=== PATIENT | female | born 1955 | race Caucasian/White ===

== ENCOUNTER 2016-10-14 11:30 | Inpatient (IN) | payer OTHER, MEDICAID ==
[2016-10-14] MEDS ORDERED: ZITHROMAX INJ 500 MG VIAL 500 MG in NS 250 ML IV 250 ML IV SCH (12:17)
[2016-10-14] MEDS ORDERED: ROCEPHIN VIAL 1 GM 1 GM in NS 50 ML IV + SPIKE MINIBAG* 50 ML IV SCH (13:00)
[2016-10-14 16:14] LABS: BASOPHILS # (AUTO) 0.1 X10^3/uL (0.0-0.1); EOSINOPHILS # (AUTO) 0.3 x10^3/uL (0.0-0.2); EOSINOPHILS % (AUTO) 4.7 % (0.9-2.9); HEMATOCRIT 42.2 % (36.0-47.0); HEMOGLOBIN 14.3 g/dL (12.0-16.0); LYMPHOCYTES # (AUTO) 2.4 X10^3/uL (1.3-2.9); LYMPHOCYTES % (AUTO) 32.2 % (21.0-51.0); MEAN CORPUSCULAR HEMOGLOBIN 30.2 pg (27.0-34.0); MEAN CORPUSCULAR VOLUME 88.7 fL (80.0-100.0); MEAN PLATELET VOLUME 7.7 fL (7.4-11.0); MONOCYTES % (AUTO) 13.7 % (0.0-13.0); NEUTROPHILS # (AUTO) 3.5 x10^3/uL (2.2-4.8); NEUTROPHILS % (AUTO) 47.4 % (42.0-75.0); PLATELET COUNT 240 X10^3/uL (150.0-450.0); RED BLOOD COUNT 4.75 X10^6/uL (3.5-5.4); RED CELL DISTRIBUTION WIDTH 12.9 % (11.6-16.5); WHITE BLOOD COUNT 7.4 X10^3/uL (3.6-10.0)
--- NOTE | 2016-10-14 16:24 | RAD ---
HISTORY: Chest pain, acute bronchitis. Study: Portable chest. Comparison: None. Findings: The trachea is midline. The cardiac silhouette is unremarkable. The lungs are clear without focal infiltrate or effusion. The bony thorax is unremarkable. IMPRESSION: 1. No acute cardiopulmonary disease. Reported By:
[2016-10-14 16:28] LABS: ALANINE AMINOTRANSFERASE 22 Units/L (12-78); ALBUMIN 3.4 g/dL (3.4-5.0); ALKALINE PHOSPHATASE 91 Units/L (46-116); ASPARTATE AMINO TRANSFERASE 19 Units/L (15-37); BLOOD UREA NITROGEN 21 mg/dL (7-18); CALCIUM 8.7 mg/dL (8.5-10.1); CARBON DIOXIDE 34.5 mmol/L (21-32); CHLORIDE 103 mmol/L (98-107); CREATININE 1.88 mg/dL (0.55-1.02); GLUCOSE 95 mg/dL (65-99); MAGNESIUM 2.7 mg/dL (1.7-2.9); SODIUM 141 mmol/L (136-145); TOTAL PROTEIN 7.6 g/dL (6.4-8.2); eGFR BLACK RACES 35 (>60); eGFR NON BLACK RACES 29 (>60)
[2016-10-14] MEDS ORDERED: NS 250 ML IV 250 ML IV ONE (16:37)
[2016-10-14 16:41] LABS: CKMB % 1.7 % (<4); CREATINE KINASE 111 Units/L (26-192); CREATINE KINASE MB 1.9 ng/mL (0-4.0); TROPONIN I < 0.02 ng/mL (0-1.5)
[2016-10-14 16:55] VITALS: BMI 36.3
[2016-10-14] MEDS ORDERED: NS 500 ML IV 500 ML IV SCH (17:00)
[2016-10-14] MEDS: ACCUNEB 1.25 MG NEBULE NEB SCH (17:40)
[2016-10-14 18:56] LABS: CKMB % 1.5 % (<4); CREATINE KINASE 114 Units/L (26-192); CREATINE KINASE MB 1.7 ng/mL (0-4.0); TROPONIN I < 0.02 ng/mL (0-1.5)
[2016-10-14] MEDS ORDERED: MORPHINE SULFATE INJ 2 MG IVP PRN (19:30)
[2016-10-14] MEDS ORDERED: LOVENOX INJ 30 MG SYR SC SCH (21:00)
[2016-10-15 00:53] LABS: CKMB % 1.9 % (<4); CREATINE KINASE 80 Units/L (26-192); CREATINE KINASE MB 1.5 ng/mL (0-4.0); TROPONIN I < 0.02 ng/mL (0-1.5)
[2016-10-15] MEDS: ACCUNEB 1.25 MG NEBULE NEB SCH ×4 (00:58→17:11)
[2016-10-15 06:43] LABS: CHOL/HDL RATIO 2.9 (0.0-5.0)
[2016-10-15] MEDS ORDERED: MORPHINE SULFATE INJ 2 MG IVP PRN (07:28)
[2016-10-15] MEDS ORDERED: PHENERGAN TAB 25 MG PO PRN (08:15)
[2016-10-15] MEDS: LOVENOX INJ 30 MG SYR SC SCH ×2 (08:23→20:23)
[2016-10-15] MEDS: ROCEPHIN VIAL 1 GM 1 GM in NS 50 ML IV + SPIKE MINIBAG* 50 ML IV SCH (08:24)
--- NOTE | 2016-10-15 08:26 | DR.H&P ---
H&P - History & Physical for Day of: H&P Date: 10/15/16 - Chief Complaint Chief Complaint: Palpitations and SOB - Allergies Allergies/Adverse Reactions: Allergies Allergy/AdvReac Type Severity Reaction Status Date / Time No Known Drug Allergy Allergy Verified 10/14/16 16:00 - History of Present Illness History of Present Illness: The patient is a 61-year-old white female who presented to the clinic secondary to complaints of continued shortness of breath with congestion and palpitations. Her [id number] states that she is using nebulizer treatments. Is continuing Augmentin that was prescribed last week. States she does delay she has more nasal congestion nail. Is having cough which is nonproductive. Has again use nebulizer treatments. Patient's tremors are more course. Denies pain with inspiration. Does state that it feels like her heart is running away. No Fever. We will admit for further evaluation. - Past Medical History Past Medical History: Anxiety, COPD, CVA, Depression, Diabetes, Dyslipidemia, GERD, Gout, Hypertension, Renal Disease Additional Medical History: Lumbar DDD, Renal Calculi, Tremors - Past Surgical History Additional Surgical History: Bronchoscopy, Tubal Ligation, Nasal surgery, EGD - Family History Family Medical History: Diabetes Mellitus, Heart Failure, Hypertension - Social History Does patient currently use any type of tobacco product: No Have you used tobacco products in the last 12 months: No Type of Tobacco Use: Cigars How many years tobacco product used: 40 Does any household member use tobacco: No Alcohol Use: None Drug Use: None - Medications Home Medications: Acetaminophen W/ Codeine [Tylenol w/Codeine #4 (300 mg/60 mg)] 1 tab PO BID PRN 10/14/16 [History Confirmed 10/14/16] Amoxicillin & Pot Clavulanate [Amoxicillin/Clavulanate P 500-125 mg] 1 tab PO Q8H 10/14/16 [History Confirmed 10/14/16] Aripiprazole [Abilify] 1 tab PO DAILY 10/14/16 [History Confirmed 10/14/16] Aspirin [ASPIRIN 81 MG CHEWTAB *] 1 tab PO DAILY 10/14/16 [History Confirmed 04/20] Bupropion HCl [Bupropion HCl ER] 1 tab PO BID 10/14/16 [History Confirmed ] Divalproex Sodium [Depakote DR] 2 tabs PO HS 10/14/16 [History Confirmed ] Donepezil Hydrochloride [ARICEPT TAB 10 MG *] 1 tab PO HS 10/14/16 [History Confirmed 10/14/16] Estradiol [Estrace tab 0.5 mg] 1 tab PO DAILY 10/14/16 [History Confirmed ] Furosemide [Furosemide] 60 mg PO Q48H 10/14/16 [History Confirmed 10/14/16] Lorazepam [ATIVAN 0.5 MG TAB *] 1 tab PO Q12H 10/14/16 [History Confirmed ] Metformin HCl [Glucophage] 1 tab PO BID 10/14/16 [History Confirmed 10/14/16] Montelukast Sodium [SINGULAIR TAB 10 MG *] 1 tab PO HS 10/14/16 [History Confirmed 10/14/16] Nifedipine [Nifedipine ER] 1 tab PO DAILY 10/14/16 [History Confirmed 10/14/16] Potassium Chloride [K-Tab] 1 tab PO DAILY 10/14/16 [History Confirmed 10/14/16] Pramipexole Dihydrochloride [Pramipexole Dihydrochlori] 1 tab PO DAILY 10/14/16 [History Confirmed 10/14/16] Promethazine HCl 1 tab PO DAILY PRN 10/14/16 [History Confirmed 10/14/16] Ranitidine HCl [Zantac] 1 tab PO BID 10/14/16 [History Confirmed 10/14/16] Simvastatin [ZOCOR 20 MG *] 1 tab PO HS 10/14/16 [History Confirmed 10/14/16] Tamsulosin HCl 1 tab PO DAILY 10/14/16 [History Confirmed 10/14/16] Torsemide 2 tab PO DAILY 10/14/16 [History Confirmed 10/14/16] - Review of Systems Constitutional: Weakness Eyes: No Symptoms Reported ENT: No Symptoms Reported Respiratory: Shortness of Breath Cardiovascular: Chest Pain, Palpitations Gastrointestinal: No Symptoms Reported Genitourinary: No Symptoms Reported Musculoskeletal: No Symptoms Reported Skin: No Symptoms Reported Neurological: Weakness - Physical Exam Vital Signs: Temperature 97.0 F Pulse Rate [Apical] 59 Pulse Rate 57 Respiratory Rate 18 Blood Pressure [Left Arm] 100/51 O2 Sat by Pulse Oximetry 99 Oriented: Normal Eyes: Normal Ear: Normal Nose: Normal Throat: Normal Respiratory: Clear Throughout Cardiovascular: Normal : Normal Auscultation: Bowel Sounds: Normal Palpation: Normal Tenderness: Normal Skin: Normal Musculoskeletal: Normal Psychiatric: Normal Mood Description: Calm Affect: Quiet Speech Pattern: Aphasic - Assessment/Plan (1) Chest pain Qualifiers: Chest pain type: C Ischemic chest pain type: I Status: Acute Plan: CXR, Cardiac Enzymes, EKGs, Nebs (2) Palpitation Status: Acute Plan: Cardiac enzymes, EKGS (3) Acute bronchitis Qualifiers: Bronchitis organism: B Status: Acute Plan: Nebs, CXR, Labs, Antibiotics
[2016-10-15] MEDS ORDERED: GLUCOPHAGE ONE ×2 (08:51→20:08)
[2016-10-15] MEDS: FLOMAX PO SCH (08:59)
[2016-10-15] MEDS: PROCARDIA XL PO SCH (08:59)
[2016-10-15] MEDS ORDERED: PATIENT'S HOME MEDICATION (Ranitidine Hcl [Zantac] 1 TAB) PO SCH (09:00)
[2016-10-15] MEDS ORDERED: ESTRADIOL PO SCH (09:00)
[2016-10-15] MEDS: GLUCOPHAGE PO SCH ×2 (09:00→20:24)
[2016-10-15] MEDS: WELLBUTRIN SR 150 MG (BID) PO SCH ×2 (09:00→20:25)
[2016-10-15] MEDS: K-DUR TAB 20 MEQ PO SCH (09:00)
[2016-10-15] MEDS ORDERED: LASIX PO SCH (09:00)
[2016-10-15] MEDS ORDERED: PATIENT'S HOME MEDICATION (Potassium Chloride [K-Tab] 1 TAB) PO SCH (09:00)
[2016-10-15] MEDS ORDERED: NIFEDIPINE PO SCH (09:00)
[2016-10-15] MEDS: ASPIRIN 81 MG CHEWTAB PO SCH (09:00)
[2016-10-15] MEDS: ATIVAN TAB 0.5 MG PO SCH ×2 (09:01→20:24)
[2016-10-15] MEDS: MIRAPEX TAB 0.25 MG PO SCH (09:01)
[2016-10-15] MEDS: ABILIFY PO SCH (09:01)
[2016-10-15] MEDS: ZANTAC PO SCH ×2 (09:01→20:24)
[2016-10-15] MEDS: ESTRACE PO SCH (09:02)
[2016-10-15] MEDS: ZITHROMAX INJ 500 MG VIAL 500 MG in NS 250 ML IV 250 ML IV SCH (09:03)
--- NOTE | 2016-10-15 17:11 | PCM.PROG ---
Progress Note - Progress Note for Day of Date: 10/15/16 - Past Medical Family Social History Past Med/Fam/Surg Hx: No changes since H&P Allergies: Allergies No Known Drug Allergy Allergy (Verified 10/14/16 16:00) - Review of Systems ROS: No change since H&P - Vital Signs and I&O's Vital Signs: Temperature 98.1 F Pulse Rate [Apical] 64 Pulse Rate 60 Respiratory Rate 14 Blood Pressure [Left Arm] 82/50 O2 Sat by Pulse Oximetry 98 Intake and Output: Intake & Output 10/13/16 10/14/16 10/15/16 10/16/16 11:59 11:59 11:59 11:59 Intake Total 1385 1209 Output Total 200 1800 Balance 1185 -591 - Physical Exam Oriented: Normal Eyes: Normal Ear: Normal Nose: Normal Throat: Normal Respiratory: Wheezes, Rhonchi Cardiovascular: Normal : Normal Auscultation: Bowel Sounds: Normal Tenderness: Normal Skin: Normal Musculoskeletal: Normal Psychiatric: Normal Mood Description: Calm Affect: Quiet Speech Pattern: Aphasic - Laboratory and Diagnostics Result Diagrams: 10/14/16 16:05 10/14/16 16:05 Labs: Laboratory WBC 7.4 X10^3/uL (3.6-10.0) 10/14/16 16:05 RBC 4.75 X10^6/uL (3.5-5.4) 10/14/16 16:05 Hgb 14.3 g/dL (12.0-16.0) 10/14/16 16:05 Hct 42.2 % (36.0-47.0) 10/14/16 16:05 MCV 88.7 fL (80.0-100.0) 10/14/16 16:05 MCH 30.2 pg (27.0-34.0) 10/14/16 16:05 MCHC 34.0 g/dL (33.0-35.0) 10/14/16 16:05 RDW 12.9 % (11.6-16.5) 10/14/16 16:05 Plt Count 240 X10^3/uL (150.0-450.0) 10/14/16 16:05 MPV 7.7 fL (7.4-11.0) 10/14/16 16:05 Neut % 47.4 % (42.0-75.0) 10/14/16 16:05 Lymph % 32.2 % (21.0-51.0) 10/14/16 16:05 [place] % 13.7 % (0.0-13.0) H 10/14/16 16:05 Eos % 4.7 % (0.9-2.9) H 10/14/16 16:05 Baso % 2.0 % (0.2-1.0) H 10/14/16 16:05 Neut # 3.5 x10^3/uL (2.2-4.8) 10/14/16 16:05 Lymph # 2.4 X10^3/uL (1.3-2.9) 10/14/16 16:05 [place] # 1.0 x10^3/uL (0.3-0.8) H 10/14/16 16:05 Eos # 0.3 x10^3/uL (0.0-0.2) H 10/14/16 16:05 Baso # 0.1 X10^3/uL (0.0-0.1) 10/14/16 16:05 Absolute Nucleated RBC 0.0 /100WBC 10/14/16 16:05 Sodium 141 mmol/L (136-145) 10/14/16 16:05 Corrected Sodium TNP 10/14/16 16:05 Potassium 3.8 mmol/L (3.5-5.1) 10/14/16 16:05 Chloride 103 mmol/L (98-107) 10/14/16 16:05 Carbon Dioxide 34.5 mmol/L (21-32) H 10/14/16 16:05 BUN 21 mg/dL (7-18) H 10/14/16 16:05 Creatinine 1.88 mg/dL (0.55-1.02) H 10/14/16 16:05 Est GFR (MDRD) Af Amer 35 (>60) L 10/14/16 16:05 Est GFR (MDRD) Non-Af 29 (>60) L 10/14/16 16:05 Glucose 95 mg/dL (65-99) 10/14/16 16:05 Calcium 8.7 mg/dL (8.5-10.1) 10/14/16 16:05 Corrected Calcium TNP 10/14/16 16:05 Magnesium 2.7 mg/dL (1.7-2.9) 10/14/16 16:05 Total Bilirubin 0.20 mg/dL (0.2-1.0) 10/14/16 16:05 AST 19 Units/L (15-37) 10/14/16 16:05 ALT 22 Units/L (12-78) 10/14/16 16:05 Alkaline Phosphatase 91 Units/L (46-116) 10/14/16 16:05 Creatine Kinase 80 Units/L (26-192) 10/15/16 00:20 CK-MB (CK-2) 1.5 ng/mL (0-4.0) 10/15/16 00:20 CK/CKMB % Calc 1.9 % (<4) 10/15/16 00:20 Troponin I < 0.02 ng/mL (0-1.5) 10/15/16 00:20 Total Protein 7.6 g/dL (6.4-8.2) 10/14/16 16:05 Albumin 3.4 g/dL (3.4-5.0) 10/14/16 16:05 Globulin 4.2 g/dL (2.5-4.5) 10/14/16 16:05 Albumin/Globulin Ratio 0.8 Ratio (1.1-2.1) L 10/14/16 16:05 Triglycerides 112 mg/dL (0-150) 10/15/16 04:15 Cholesterol 141 mg/dL (0-200) 10/15/16 04:15 LDL Cholesterol, Calc 70 mg/dL (0-100) 10/15/16 04:15 HDL Cholesterol 49 mg/dL (40-60) 10/15/16 04:15 Cholesterol/HDL Ratio 2.9 (0.0-5.0) 10/15/16 04:15 - Plan (1) Acute bronchitis Status: Acute Qualifiers: Bronchitis organism: B Plan: Nebs, CXR, Labs, Antibiotics (2) Chest pain Status: Acute Qualifiers: Chest pain type: C Ischemic chest pain type: I Plan: CE AND EKG STABLE, CONTINUE TELEMETRY (3) CHF (congestive heart failure) Status: Chronic Qualifiers: Congestive heart failure type: C Congestive heart failure chronicity: C (4) COPD (chronic obstructive pulmonary disease) Status: Chronic Qualifiers: COPD type: C Chronic bronchitis type: C Emphysema type: E (5) Dementia Status: Chronic Qualifiers: Dementia type: D Alzheimer's disease onset: A Dementia behavioral disturbance: D (6) HTN (hypertension) Status: Chronic Qualifiers: Hypertension type: H
[2016-10-15] MEDS: NS 500 ML IV 500 ML IV SCH (18:37)
[2016-10-15] MEDS ORDERED: COLACE CAP 100 MG PO PRN (19:45)
[2016-10-15] MEDS ORDERED: DEPAKOTE D.R. TAB PO ONE (20:08)
[2016-10-15] MEDS: MILK OF MAGNESIA PO PRN (20:22)
[2016-10-15] MEDS: TYLENOL #3 TAB (W/CODEINE) PO PRN (20:23)
[2016-10-15] MEDS: ZOCOR TAB 20 MG PO SCH (20:24)
[2016-10-15] MEDS: ARICEPT TAB 10 MG PO SCH (20:24)
[2016-10-15] MEDS: SINGULAIR TAB 10 MG PO SCH (20:24)
[2016-10-15] MEDS: DEPAKOTE D.R. TAB PO SCH (20:26)
[2016-10-16] MEDS: ACCUNEB 1.25 MG NEBULE NEB SCH ×4 (00:51→16:59)
--- NOTE | 2016-10-16 06:13 | RAD ---
HISTORY: Bronchitis Study: Chest one view Comparison: October 14, 2016 Findings: The trachea is midline. The cardiac silhouette is unremarkable. The lungs are clear without focal infiltrate or effusion. The bony thorax is unremarkable. IMPRESSION: 1. No acute cardiopulmonary disease. Reported By:
[2016-10-16 06:55] LABS: BASOPHILS % (AUTO) 0.8 % (0.2-1.0); EOSINOPHILS # (AUTO) 0.3 x10^3/uL (0.0-0.2); HEMATOCRIT 35.6 % (36.0-47.0); HEMOGLOBIN 11.9 g/dL (12.0-16.0); LYMPHOCYTES # (AUTO) 2.5 X10^3/uL (1.3-2.9); LYMPHOCYTES % (AUTO) 48.3 % (21.0-51.0); MEAN CORPUSCULAR HEMOGLOBIN 29.8 pg (27.0-34.0); MEAN CORPUSCULAR HGB CONC 33.5 g/dL (33.0-35.0); MEAN CORPUSCULAR VOLUME 88.8 fL (80.0-100.0); MEAN PLATELET VOLUME 8.1 fL (7.4-11.0); MONOCYTES # (AUTO) 0.6 x10^3/uL (0.3-0.8); MONOCYTES % (AUTO) 12.5 % (0.0-13.0); NEUTROPHILS # (AUTO) 1.6 x10^3/uL (2.2-4.8); NEUTROPHILS % (AUTO) 32.4 % (42.0-75.0); PLATELET COUNT 187 X10^3/uL (150.0-450.0); RED BLOOD COUNT 4.01 X10^6/uL (3.5-5.4); RED CELL DISTRIBUTION WIDTH 13.2 % (11.6-16.5); WHITE BLOOD COUNT 5.1 X10^3/uL (3.6-10.0)
[2016-10-16 07:17] LABS: ALANINE AMINOTRANSFERASE 19 Units/L (12-78); ALBUMIN 2.5 g/dL (3.4-5.0); ALKALINE PHOSPHATASE 78 Units/L (46-116); ASPARTATE AMINO TRANSFERASE 18 Units/L (15-37); BLOOD UREA NITROGEN 17 mg/dL (7-18); CALCIUM 8.6 mg/dL (8.5-10.1); CHLORIDE 108 mmol/L (98-107); COR CA(FOR HYPOALB) 9.8 mg/dL (8.5-10.1); CREATININE 1.39 mg/dL (0.55-1.02); GLUCOSE 97 mg/dL (65-99); SODIUM 143 mmol/L (136-145); eGFR BLACK RACES 49 (>60); eGFR NON BLACK RACES 41 (>60)
[2016-10-16] MEDS ORDERED: GLUCOPHAGE ONE ×2 (09:50→20:07)
[2016-10-16] MEDS: LOVENOX INJ 30 MG SYR SC SCH ×2 (10:09→21:48)
[2016-10-16] MEDS: ZITHROMAX INJ 500 MG VIAL 500 MG in NS 250 ML IV 250 ML IV SCH (10:10)
[2016-10-16] MEDS: MILK OF MAGNESIA PO PRN (10:10)
[2016-10-16] MEDS: ROCEPHIN VIAL 1 GM 1 GM in NS 50 ML IV + SPIKE MINIBAG* 50 ML IV SCH (10:11)
[2016-10-16] MEDS: PROCARDIA XL PO SCH (10:11)
[2016-10-16] MEDS: ZANTAC PO SCH ×2 (10:11→21:49)
[2016-10-16] MEDS: MIRAPEX TAB 0.25 MG PO SCH (10:12)
[2016-10-16] MEDS: ATIVAN TAB 0.5 MG PO SCH ×2 (10:12→21:49)
[2016-10-16] MEDS: ESTRACE PO SCH (10:12)
[2016-10-16] MEDS: K-DUR TAB 20 MEQ PO SCH (10:13)
[2016-10-16] MEDS: GLUCOPHAGE PO SCH ×2 (10:13→21:49)
[2016-10-16] MEDS: WELLBUTRIN SR 150 MG (BID) PO SCH ×2 (10:13→21:49)
[2016-10-16] MEDS: FLOMAX PO SCH (10:13)
[2016-10-16] MEDS: ASPIRIN 81 MG CHEWTAB PO SCH (10:14)
[2016-10-16] MEDS: ABILIFY PO SCH (10:21)
[2016-10-16] MEDS: ROBITUSSIN DM PO SCH ×4 (12:51→21:48)
--- NOTE | 2016-10-16 13:10 | PCM.PROG ---
Progress Note - Progress Note for Day of Date: 10/16/16 - Subjective Subjective: PT STATES SOB IMPROVED, CONTINUES WITH PRODUCTIVE COUGH - Past Medical Family Social History Past Med/Fam/Surg Hx: No changes since H&P Allergies: Allergies No Known Drug Allergy Allergy (Verified 10/14/16 16:00) - Review of Systems ROS: No change since H&P - Vital Signs and I&O's Vital Signs: Temperature 97.9 F Pulse Rate [Apical] 71 Pulse Rate 56 Respiratory Rate 14 Blood Pressure [Right Arm] 112/68 Blood Pressure [Left Arm] 95/55 O2 Sat by Pulse Oximetry 99 Intake and Output: Intake & Output 10/14/16 10/15/16 10/16/16 10/17/16 11:59 11:59 11:59 11:59 Intake Total 1385 1779 Output Total 200 2500 Balance 1185 -721 - Physical Exam Oriented: Normal Eyes: Normal Ear: Normal Nose: Normal Throat: Normal Respiratory: Wheezes, Rhonchi Cardiovascular: Normal : Normal Auscultation: Bowel Sounds: Normal Tenderness: Normal Skin: Normal Musculoskeletal: Normal Psychiatric: Normal Mood Description: Calm Affect: Quiet Speech Pattern: Clear, Appropriate - Laboratory and Diagnostics Result Diagrams: 10/16/16 05:10 10/16/16 05:10 Labs: Laboratory WBC 5.1 X10^3/uL (3.6-10.0) 10/16/16 05:10 RBC 4.01 X10^6/uL (3.5-5.4) 10/16/16 05:10 Hgb 11.9 g/dL (12.0-16.0) L 10/16/16 05:10 Hct 35.6 % (36.0-47.0) L 10/16/16 05:10 MCV 88.8 fL (80.0-100.0) 10/16/16 05:10 MCH 29.8 pg (27.0-34.0) 10/16/16 05:10 MCHC 33.5 g/dL (33.0-35.0) 10/16/16 05:10 RDW 13.2 % (11.6-16.5) 10/16/16 05:10 Plt Count 187 X10^3/uL (150.0-450.0) 10/16/16 05:10 MPV 8.1 fL (7.4-11.0) 10/16/16 05:10 Neut % 32.4 % (42.0-75.0) L 10/16/16 05:10 Lymph % 48.3 % (21.0-51.0) 10/16/16 05:10 [place] % 12.5 % (0.0-13.0) 10/16/16 05:10 Eos % 6.0 % (0.9-2.9) H 10/16/16 05:10 Baso % 0.8 % (0.2-1.0) 10/16/16 05:10 Neut # 1.6 x10^3/uL (2.2-4.8) L 10/16/16 05:10 Lymph # 2.5 X10^3/uL (1.3-2.9) 10/16/16 05:10 [place] # 0.6 x10^3/uL (0.3-0.8) 10/16/16 05:10 Eos # 0.3 x10^3/uL (0.0-0.2) H 10/16/16 05:10 Baso # 0.0 X10^3/uL (0.0-0.1) 10/16/16 05:10 Absolute Nucleated RBC 0.3 /100WBC 10/16/16 05:10 Sodium 143 mmol/L (136-145) 10/16/16 05:10 Corrected Sodium TNP 10/16/16 05:10 Potassium 4.3 mmol/L (3.5-5.1) 10/16/16 05:10 Chloride 108 mmol/L (98-107) H 10/16/16 05:10 Carbon Dioxide 31.0 mmol/L (21-32) 10/16/16 05:10 BUN 17 mg/dL (7-18) 10/16/16 05:10 Creatinine 1.39 mg/dL (0.55-1.02) H 10/16/16 05:10 Est GFR (MDRD) Af Amer 49 (>60) L 10/16/16 05:10 Est GFR (MDRD) Non-Af 41 (>60) L 10/16/16 05:10 Glucose 97 mg/dL (65-99) 10/16/16 05:10 Calcium 8.6 mg/dL (8.5-10.1) 10/16/16 05:10 Corrected Calcium 9.8 mg/dL (8.5-10.1) 10/16/16 05:10 Magnesium 2.7 mg/dL (1.7-2.9) 10/14/16 16:05 Total Bilirubin 0.10 mg/dL (0.2-1.0) L 10/16/16 05:10 AST 18 Units/L (15-37) 10/16/16 05:10 ALT 19 Units/L (12-78) 10/16/16 05:10 Alkaline Phosphatase 78 Units/L (46-116) 10/16/16 05:10 Creatine Kinase 80 Units/L (26-192) 10/15/16 00:20 CK-MB (CK-2) 1.5 ng/mL (0-4.0) 10/15/16 00:20 CK/CKMB % Calc 1.9 % (<4) 10/15/16 00:20 Troponin I < 0.02 ng/mL (0-1.5) 10/15/16 00:20 Total Protein 6.0 g/dL (6.4-8.2) L 10/16/16 05:10 Albumin 2.5 g/dL (3.4-5.0) L 10/16/16 05:10 Globulin 3.5 g/dL (2.5-4.5) 10/16/16 05:10 Albumin/Globulin Ratio 0.7 Ratio (1.1-2.1) L 10/16/16 05:10 Triglycerides 112 mg/dL (0-150) 10/15/16 04:15 Cholesterol 141 mg/dL (0-200) 10/15/16 04:15 LDL Cholesterol, Calc 70 mg/dL (0-100) 10/15/16 04:15 HDL Cholesterol 49 mg/dL (40-60) 10/15/16 04:15 Cholesterol/HDL Ratio 2.9 (0.0-5.0) 10/15/16 04:15 - Plan (1) Acute bronchitis Status: Acute Qualifiers: Bronchitis organism: B Plan: Nebs, CXR, Labs, Antibiotics. ROBITUSSIN DM QID (2) Chest pain Status: Acute Qualifiers: Chest pain type: C Ischemic chest pain type: I Plan: CE AND EKG STABLE, CONTINUE TELEMETRY (3) CHF (congestive heart failure) Status: Chronic Qualifiers: Congestive heart failure type: C Congestive heart failure chronicity: C (4) COPD (chronic obstructive pulmonary disease) Status: Chronic Qualifiers: COPD type: C Chronic bronchitis type: C Emphysema type: E (5) Dementia Status: Chronic Qualifiers: Dementia type: D Alzheimer's disease onset: A Dementia behavioral disturbance: D (6) HTN (hypertension) Status: Chronic Qualifiers: Hypertension type: H
[2016-10-16] MEDS: NS 500 ML IV 500 ML IV SCH (18:00)
[2016-10-16] MEDS: LASIX IVP SCH ×2 (18:16→21:48)
[2016-10-16] MEDS: TYLENOL #3 TAB (W/CODEINE) PO PRN (19:26)
[2016-10-16] MEDS: SNACK - Diabetic Appropriate PO SCH (19:27)
[2016-10-16] MEDS ORDERED: DEPAKOTE D.R. TAB PO ONE (20:11)
[2016-10-16] MEDS: PULMICORT NEB TX 0.5 MG NEB SCH (21:19)
[2016-10-16] MEDS: ARICEPT TAB 10 MG PO SCH (21:49)
[2016-10-16] MEDS: ZOCOR TAB 20 MG PO SCH (21:49)
[2016-10-16] MEDS: SINGULAIR TAB 10 MG PO SCH (21:49)
[2016-10-16] MEDS: DEPAKOTE D.R. TAB PO SCH (21:50)
[2016-10-16 22:42] LABS: BILIRUBIN,URINE NEGATIVE (NEGATIVE); BLOOD/HEMOGLOBIN,URINE NEGATIVE (NEGATIVE); GLUCOSE, URINE NEGATIVE (NEGATIVE); KETONES,URINE NEGATIVE (NEGATIVE); LEUKOCYTE ESTERASE ,URINE NEGATIVE (NEGATIVE); NITRITES,URINE NEGATIVE (NEGATIVE); PROTEIN,URINE NEGATIVE (NEGATIVE); UROBILINOGEN,URINE NORMAL (NORMAL)
[2016-10-16 22:58] LABS: APPEARANCE,URINE CLEAR (CLEAR); BACTERIA,URINE NEGATIVE /HPF (NEGATIVE); COLOR,URINE PALE YELLOW (YELLOW); RBC,URINE 0-3 /HPF (NEGATIVE); SQUAMOUS EPITHELIAL CELL,UR RARE /HPF (NEGATIVE)
[2016-10-17] MEDS: ACCUNEB 1.25 MG NEBULE NEB SCH ×3 (00:59→11:01)
[2016-10-17 06:15] LABS: BASOPHILS % (AUTO) 0.5 % (0.2-1.0); EOSINOPHILS # (AUTO) 0.3 x10^3/uL (0.0-0.2); EOSINOPHILS % (AUTO) 5.9 % (0.9-2.9); HEMATOCRIT 35.1 % (36.0-47.0); HEMOGLOBIN 11.9 g/dL (12.0-16.0); LYMPHOCYTES # (AUTO) 2.6 X10^3/uL (1.3-2.9); LYMPHOCYTES % (AUTO) 44.1 % (21.0-51.0); MEAN CORPUSCULAR HEMOGLOBIN 29.9 pg (27.0-34.0); MEAN CORPUSCULAR HGB CONC 33.9 g/dL (33.0-35.0); MEAN CORPUSCULAR VOLUME 88.4 fL (80.0-100.0); MEAN PLATELET VOLUME 8.3 fL (7.4-11.0); MONOCYTES # (AUTO) 0.8 x10^3/uL (0.3-0.8); MONOCYTES % (AUTO) 12.9 % (0.0-13.0); NEUTROPHILS # (AUTO) 2.1 x10^3/uL (2.2-4.8); NEUTROPHILS % (AUTO) 36.6 % (42.0-75.0); PLATELET COUNT 202 X10^3/uL (150.0-450.0); RED BLOOD COUNT 3.97 X10^6/uL (3.5-5.4); RED CELL DISTRIBUTION WIDTH 12.8 % (11.6-16.5); WHITE BLOOD COUNT 5.8 X10^3/uL (3.6-10.0)
--- NOTE | 2016-10-17 06:31 | RAD ---
HISTORY: Shortness of breath Study: Chest one view Comparison: October 16, 2016 Findings: The trachea is midline. The cardiac silhouette is unremarkable. The lungs are clear without focal infiltrate or effusion. The bony thorax is unremarkable. IMPRESSION: 1. No acute cardiopulmonary disease. Reported By:
[2016-10-17 06:36] LABS: ALANINE AMINOTRANSFERASE 18 Units/L (12-78); ALBUMIN 2.6 g/dL (3.4-5.0); ALKALINE PHOSPHATASE 74 Units/L (46-116); ASPARTATE AMINO TRANSFERASE 15 Units/L (15-37); BLOOD UREA NITROGEN 17 mg/dL (7-18); CALCIUM 8.7 mg/dL (8.5-10.1); CARBON DIOXIDE 29.9 mmol/L (21-32); CHLORIDE 106 mmol/L (98-107); COR CA(FOR HYPOALB) 9.8 mg/dL (8.5-10.1); CREATININE 1.25 mg/dL (0.55-1.02); GLUCOSE 67 mg/dL (65-99); SODIUM 144 mmol/L (136-145); eGFR BLACK RACES 56 (>60); eGFR NON BLACK RACES 46 (>60)
[2016-10-17] MEDS ORDERED: GLUCOPHAGE ONE ×2 (08:23→20:39)
[2016-10-17] MEDS: PULMICORT NEB TX 0.5 MG NEB SCH ×2 (08:55→20:35)
[2016-10-17] MEDS: ZITHROMAX INJ 500 MG VIAL 500 MG in NS 250 ML IV 250 ML IV SCH (09:27)
[2016-10-17] MEDS: ROCEPHIN VIAL 1 GM 1 GM in NS 50 ML IV + SPIKE MINIBAG* 50 ML IV SCH (09:27)
[2016-10-17] MEDS: NS 500 ML IV 500 ML IV SCH ×2 (09:27→17:14)
[2016-10-17] MEDS: LOVENOX INJ 30 MG SYR SC SCH ×2 (09:29→21:02)
[2016-10-17] MEDS: WELLBUTRIN SR 150 MG (BID) PO SCH ×2 (09:30→21:04)
[2016-10-17] MEDS: PROCARDIA XL PO SCH (09:30)
[2016-10-17] MEDS: MIRAPEX TAB 0.25 MG PO SCH (09:30)
[2016-10-17] MEDS: ASPIRIN 81 MG CHEWTAB PO SCH (09:30)
[2016-10-17] MEDS: ROBITUSSIN DM PO SCH ×4 (09:30→21:03)
[2016-10-17] MEDS: GLUCOPHAGE PO SCH ×2 (09:30→21:04)
[2016-10-17] MEDS: ABILIFY PO SCH (09:30)
[2016-10-17] MEDS: LASIX IVP SCH ×2 (09:30→21:09)
[2016-10-17] MEDS: K-DUR TAB 20 MEQ PO SCH (09:31)
[2016-10-17] MEDS: ZANTAC PO SCH ×2 (09:31→21:08)
[2016-10-17] MEDS: ATIVAN TAB 0.5 MG PO SCH ×2 (09:31→21:06)
[2016-10-17] MEDS: FLOMAX PO SCH (09:31)
[2016-10-17] MEDS: ESTRACE PO SCH (09:31)
--- NOTE | 2016-10-17 18:04 | PCM.PROG ---
Progress Note - Progress Note for Day of Date: 10/17/16 - Subjective Subjective: PT STATES SOB IMPROVED, CONTINUED WHEEZING. PLAN TO REPEAT AM LABS AND CXR, PLAN TO CONSULT CASE MANAGEMENT ABOUT HOME HEALTH AFTER D/C - Past Medical Family Social History Past Med/Fam/Surg Hx: No changes since H&P Allergies: Allergies MS No Known Drug Allergy [No Known Drug Allergy] Allergy (Verified 10/14/16 16: 00) - Review of Systems ROS: No change since H&P - Vital Signs and I&O's Vital Signs: Temperature 98.4 F Pulse Rate [Apical] 65 Pulse Rate 74 Respiratory Rate 18 Blood Pressure [Right Arm] 92/47 Blood Pressure [Left Arm] 95/55 O2 Sat by Pulse Oximetry 99 Intake and Output: Intake & Output 10/15/16 10/16/16 10/17/16 10/18/16 11:59 11:59 11:59 11:59 Intake Total 1385 1779 1610 1050 Output Total 200 2500 3800 1700 Balance 8183 -901 -4874 -598 - Physical Exam Oriented: Normal Eyes: Normal Ear: Normal Nose: Normal Throat: Normal Respiratory: Wheezes Cardiovascular: Normal : Normal Auscultation: Bowel Sounds: Normal Tenderness: Normal Skin: Normal Musculoskeletal: Back:Lumbar Psychiatric: Normal Mood Description: Calm Affect: Quiet Speech Pattern: Clear, Appropriate - Laboratory and Diagnostics Result Diagrams: 10/17/16 03:30 10/17/16 03:30 Labs: Laboratory WBC 5.8 X10^3/uL (3.6-10.0) 10/17/16 03:30 RBC 3.97 X10^6/uL (3.5-5.4) 10/17/16 03:30 Hgb 11.9 g/dL (12.0-16.0) L 10/17/16 03:30 Hct 35.1 % (36.0-47.0) L 10/17/16 03:30 MCV 88.4 fL (80.0-100.0) 10/17/16 03:30 MCH 29.9 pg (27.0-34.0) 10/17/16 03:30 MCHC 33.9 g/dL (33.0-35.0) 10/17/16 03:30 RDW 12.8 % (11.6-16.5) 10/17/16 03:30 Plt Count 202 X10^3/uL (150.0-450.0) 10/17/16 03:30 MPV 8.3 fL (7.4-11.0) 10/17/16 03:30 Neut % 36.6 % (42.0-75.0) L 10/17/16 03:30 Lymph % 44.1 % (21.0-51.0) 10/17/16 03:30 [place] % 12.9 % (0.0-13.0) 10/17/16 03:30 Eos % 5.9 % (0.9-2.9) H 10/17/16 03:30 Baso % 0.5 % (0.2-1.0) 10/17/16 03:30 Neut # 2.1 x10^3/uL (2.2-4.8) L 10/17/16 03:30 Lymph # 2.6 X10^3/uL (1.3-2.9) 10/17/16 03:30 [place] # 0.8 x10^3/uL (0.3-0.8) 10/17/16 03:30 Eos # 0.3 x10^3/uL (0.0-0.2) H 10/17/16 03:30 Baso # 0.0 X10^3/uL (0.0-0.1) 10/17/16 03:30 Absolute Nucleated RBC 0.2 /100WBC 10/17/16 03:30 Sodium 144 mmol/L (136-145) 10/17/16 03:30 Corrected Sodium TNP 10/17/16 03:30 Potassium 4.2 mmol/L (3.5-5.1) 10/17/16 03:30 Chloride 106 mmol/L (98-107) 10/17/16 03:30 Carbon Dioxide 29.9 mmol/L (21-32) 10/17/16 03:30 BUN 17 mg/dL (7-18) 10/17/16 03:30 Creatinine 1.25 mg/dL (0.55-1.02) H 10/17/16 03:30 Est GFR (MDRD) Af Amer 56 (>60) L 10/17/16 03:30 Est GFR (MDRD) Non-Af 46 (>60) L 10/17/16 03:30 Glucose 67 mg/dL (65-99) 10/17/16 03:30 Calcium 8.7 mg/dL (8.5-10.1) 10/17/16 03:30 Corrected Calcium 9.8 mg/dL (8.5-10.1) 10/17/16 03:30 Magnesium 2.7 mg/dL (1.7-2.9) 10/14/16 16:05 Total Bilirubin 0.10 mg/dL (0.2-1.0) L 10/17/16 03:30 AST 15 Units/L (15-37) 10/17/16 03:30 ALT 18 Units/L (12-78) 10/17/16 03:30 Alkaline Phosphatase 74 Units/L (46-116) 10/17/16 03:30 Creatine Kinase 80 Units/L (26-192) 10/15/16 00:20 CK-MB (CK-2) 1.5 ng/mL (0-4.0) 10/15/16 00:20 CK/CKMB % Calc 1.9 % (<4) 10/15/16 00:20 Troponin I < 0.02 ng/mL (0-1.5) 10/15/16 00:20 Total Protein 6.0 g/dL (6.4-8.2) L 10/17/16 03:30 Albumin 2.6 g/dL (3.4-5.0) L 10/17/16 03:30 Globulin 3.4 g/dL (2.5-4.5) 10/17/16 03:30 Albumin/Globulin Ratio 0.8 Ratio (1.1-2.1) L 10/17/16 03:30 Triglycerides 112 mg/dL (0-150) 10/15/16 04:15 Cholesterol 141 mg/dL (0-200) 10/15/16 04:15 LDL Cholesterol, Calc 70 mg/dL (0-100) 10/15/16 04:15 HDL Cholesterol 49 mg/dL (40-60) 10/15/16 04:15 Cholesterol/HDL Ratio 2.9 (0.0-5.0) 10/15/16 04:15 Specimen Type Catherized urine 10/16/16 22:21 Urine Color Pale yellow (YELLOW) 10/16/16 22:21 Urine Appearance Clear (CLEAR) 10/16/16 22:21 Urine pH 8.0 (5.0 - 8.0) 10/16/16 22:21 Ur Specific [place] 1.015 (1.000-1.030) 10/16/16 22:21 Urine Protein Negative (NEGATIVE) 10/16/16 22:21 Urine Glucose (UA) Negative (NEGATIVE) 10/16/16 22:21 Urine Ketones Negative (NEGATIVE) 10/16/16 22:21 Urine Occult Blood Negative (NEGATIVE) 10/16/16 22:21 Urine Nitrite Negative (NEGATIVE) 10/16/16 22:21 Urine Bilirubin Negative (NEGATIVE) 10/16/16 22:21 Urine Urobilinogen Normal (NORMAL) 10/16/16 22:21 Ur Leukocyte Esterase Negative (NEGATIVE) 10/16/16 22:21 Urine RBC 0-3 /HPF (NEGATIVE) 10/16/16 22:21 Urine WBC 0-3 /HPF (NEGATIVE) 10/16/16 22:21 Ur Squamous Epith Cells Rare /HPF (NEGATIVE) 10/16/16 22:21 Urine Bacteria Negative /HPF (NEGATIVE) 10/16/16 22:21 Ur Culture Indicated? No/not indicated 10/16/16 22:21 - Plan (1) Acute bronchitis Status: Acute Qualifiers: Bronchitis organism: B Plan: Nebs, CXR, Labs, Antibiotics. ROBITUSSIN DM QID (2) Chest pain Status: Acute Qualifiers: Chest pain type: C Ischemic chest pain type: I Plan: CE AND EKG STABLE, CONTINUE TELEMETRY (3) CHF (congestive heart failure) Status: Chronic Qualifiers: Congestive heart failure type: C Congestive heart failure chronicity: C (4) COPD (chronic obstructive pulmonary disease) Status: Chronic Qualifiers: COPD type: C Chronic bronchitis type: C Emphysema type: E (5) Dementia Status: Chronic Qualifiers: Dementia type: D Alzheimer's disease onset: A Dementia behavioral disturbance: D (6) HTN (hypertension) Status: Chronic Qualifiers: Hypertension type: H
[2016-10-17] MEDS ORDERED: DEPAKOTE D.R. TAB PO ONE (20:45)
[2016-10-17] MEDS: TYLENOL #3 TAB (W/CODEINE) PO PRN (21:04)
[2016-10-17] MEDS: DEPAKOTE D.R. TAB PO SCH (21:07)
[2016-10-17] MEDS: ARICEPT TAB 10 MG PO SCH (21:08)
[2016-10-17] MEDS: ZOCOR TAB 20 MG PO SCH (21:08)
[2016-10-17] MEDS: SINGULAIR TAB 10 MG PO SCH (21:08)
[2016-10-17] MEDS: SNACK - Diabetic Appropriate PO SCH (21:09)
[2016-10-18] MEDS: ACCUNEB 1.25 MG NEBULE NEB SCH ×3 (00:52→11:00)
[2016-10-18 05:12] LABS: BASOPHILS # (AUTO) 0.1 X10^3/uL (0.0-0.1); BASOPHILS % (AUTO) 0.9 % (0.2-1.0); EOSINOPHILS # (AUTO) 0.4 x10^3/uL (0.0-0.2); EOSINOPHILS % (AUTO) 5.6 % (0.9-2.9); HEMATOCRIT 37.5 % (36.0-47.0); HEMOGLOBIN 12.5 g/dL (12.0-16.0); LYMPHOCYTES % (AUTO) 43.7 % (21.0-51.0); MEAN CORPUSCULAR HEMOGLOBIN 29.6 pg (27.0-34.0); MEAN CORPUSCULAR HGB CONC 33.5 g/dL (33.0-35.0); MEAN CORPUSCULAR VOLUME 88.4 fL (80.0-100.0); MONOCYTES # (AUTO) 0.9 x10^3/uL (0.3-0.8); MONOCYTES % (AUTO) 13.8 % (0.0-13.0); NEUTROPHILS # (AUTO) 2.5 x10^3/uL (2.2-4.8); PLATELET COUNT 225 X10^3/uL (150.0-450.0); RED BLOOD COUNT 4.24 X10^6/uL (3.5-5.4); WHITE BLOOD COUNT 6.8 X10^3/uL (3.6-10.0)
[2016-10-18 05:31] LABS: ALANINE AMINOTRANSFERASE 18 Units/L (12-78); ALBUMIN 2.8 g/dL (3.4-5.0); ALKALINE PHOSPHATASE 79 Units/L (46-116); ASPARTATE AMINO TRANSFERASE 16 Units/L (15-37); BLOOD UREA NITROGEN 22 mg/dL (7-18); CARBON DIOXIDE 30.9 mmol/L (21-32); CHLORIDE 106 mmol/L (98-107); GLUCOSE 81 mg/dL (65-99); SODIUM 144 mmol/L (136-145); TOTAL PROTEIN 6.6 g/dL (6.4-8.2); eGFR BLACK RACES 49 (>60); eGFR NON BLACK RACES 40 (>60)
[2016-10-18] MEDS ORDERED: GLUCOPHAGE ONE (09:50)
[2016-10-18] MEDS: ROBITUSSIN DM PO SCH ×4 (10:00→16:36)
[2016-10-18] MEDS: ROCEPHIN VIAL 1 GM 1 GM in NS 50 ML IV + SPIKE MINIBAG* 50 ML IV SCH (10:17)
[2016-10-18] MEDS: K-DUR TAB 20 MEQ PO SCH (10:18)
[2016-10-18] MEDS: WELLBUTRIN SR 150 MG (BID) PO SCH (10:18)
[2016-10-18] MEDS: MIRAPEX TAB 0.25 MG PO SCH (10:19)
[2016-10-18] MEDS: GLUCOPHAGE PO SCH (10:19)
[2016-10-18] MEDS: ZANTAC PO SCH (10:20)
[2016-10-18] MEDS: ESTRACE PO SCH (10:20)
[2016-10-18] MEDS: ATIVAN TAB 0.5 MG PO SCH (10:20)
[2016-10-18] MEDS: LOVENOX INJ 30 MG SYR SC SCH (10:29)
[2016-10-18] MEDS: ZITHROMAX INJ 500 MG VIAL 500 MG in NS 250 ML IV 250 ML IV SCH (10:31)
[2016-10-18] MEDS: LASIX IVP SCH (10:39)
[2016-10-18] MEDS: PROCARDIA XL PO SCH (10:49)
[2016-10-18] MEDS: ASPIRIN 81 MG CHEWTAB PO SCH (10:51)
[2016-10-18] MEDS: PULMICORT NEB TX 0.5 MG NEB SCH (10:54)
[2016-10-18] MEDS: ABILIFY PO SCH (12:06)
[2016-10-18 18:31] VITALS: BP 111/69
== END 2016-10-18 18:40 | disposition home health service (06) | DRG 313 ==
LOC: UNDOADMIN 11:30 → ICU 11:30
PROVIDERS: ADMIT Internal Medicine; ATTEND Internal Medicine
DX: R07.89 Other chest pain (principal); J20.8 Acute bronchitis due to other specified organisms; R06.02 Shortness of breath; F41.8 Other specified anxiety disorders; J44.9 Chronic obstructive pulmonary disease, unspecified; I25.10 Atherosclerotic heart disease of native coronary artery without angina pectoris; F32.89 Other specified depressive episodes; E78.2 Mixed hyperlipidemia; K21.9 Gastro-esophageal reflux disease without esophagitis; I10 Essential (primary) hypertension; I50.9 Heart failure, unspecified
CPT/HCPCS: 36415; 71010; 80053; 80061; 81001; 82550; 82553; 83735; 84484; 85025; 93005; 93010; 94640; A4216; A4222; S0106; J0456; J0696; J1650; J1940; J2270; J7613; J7626